=== PATIENT | male | born 1950 | race Caucasian/White ===

== ENCOUNTER 2023-10-05 09:20 | Outpatient (CLI) | payer MEDICARE ==
[~2023-10-05] VITALS: Ht 180.3 cm; Wt 93.0 kg
[2023-10-05] MEDS ORDERED: IRBE150T51 PO (10:27)
[2023-10-05] MEDS ORDERED: ROSU20TA73 PO (10:27)
[2023-10-05] MEDS ORDERED: VITAMIN D (10:27)
[2023-10-05] MEDS ORDERED: AMLO10TA PO (10:27)
[2023-10-05] MEDS ORDERED: MVI (10:28)
[2023-10-05] MEDS ORDERED: MILK THISTLE (10:28)
[2023-10-05 11:14] LABS: BILIRUBIN,URINE NEGATIVE (Neg); CLARITY,URINE CLEAR (Clear); COLOR,URINE YELLOW (Yellow); GLUCOSE, URINE NEGATIVE (Neg); KETONES,URINE NEGATIVE (Neg); LEUKOCYTE ESTERASE ,URINE NEGATIVE (Neg); NITRITES, URINE NEGATIVE (Neg); OCCULT BLOOD,URINE NEGATIVE (Neg); PH,URINE 6.5 (4.8-8.0); PROTEIN,URINE NEGATIVE (Neg); UROBILINOGEN,URINE 0.2 E.U/dL (0.2-1.0)
[2023-10-05 11:17] LABS: BASOPHILS % (AUTO) 0.4 % (0-1); MEAN CORPUSCULAR HEMOGLOBIN 31.2 PG (27.0-31.0); MONOCYTES # (AUTO) 0.5 X10'3 (0-0.9); NEUTROPHILS # (AUTO) 4.1 X10'3 (1.8-7.7)
[2023-10-05 11:18] LABS: EOSINOPHILS # (AUTO) 0.1 X10'3 (0-0.9); EOSINOPHILS % (AUTO) 2.5 % (0-6); LYMPHOCYTES # (AUTO) 1.1 X10'3 (1.1-4.8); LYMPHOCYTES % (AUTO) 19.3 % (21-51); MEAN CORPUSCULAR VOLUME 91.7 FL (78-98); MEAN PLATELET VOLUME 9.2 FL (7.4-10.4); NEUTROPHILS % (AUTO) 68.8 % (42-75); PRE OP HEMATOCRIT 46.8 % (42.0-52.0); PRE OP HEMOGLOBIN 15.9 g/dL (14.0-17.9); PRE OP PLATELET COUNT 182 X10'3 (140-440); PRE OP WHITE BLOOD COUNT 5.9 10'3 (4.8-10.8); RED BLOOD COUNT 5.11 X10'6 (4.70-6.10); RED CELL DISTRIBUTION WIDTH 12.4 % (11.5-14.5); UA COLLECTION TYPE NON-SPECIFIED
[2023-10-05 11:27] LABS: PRE OP PROTIME 10.4 SECONDS (9.0-12.0)
[2023-10-05 11:30] LABS: ALBUMIN 3.4 G/DL (3.4-5.0); ALBUMIN/GLOBULIN RATIO 0.8 (1.1-1.5); ALKALINE PHOSPHATASE 102 IU/L (46-116); BLOOD UREA NITROGEN 13 MG/DL (7-18); BUN/CREATININE RATIO 17.8 (10.0-20.0); CALCIUM 7.7 MG/DL (8.5-10.1); CHLORIDE 105 MMOL/L (99-107); CREATININE 0.73 MG/DL (0.60-1.10); PRE OP ALT 43 U/L (30-65); PRE OP ANION GAP 4 (8-16); PRE OP AST 26 U/L (10-37); PRE OP BILIRUB, TOTAL 0.7 MG/DL (0.0-1.0); PRE OP GLUCOSE 93 MG/DL (70-104); PRE OP POTASSIUM 3.7 MMOL/L (3.4-5.1); PRE OP SODIUM 142 MMOL/L (135-145); TOTAL CARBON DIOXIDE 33.1 MMOL/L (24-32); TOTAL PROTEIN 7.5 G/DL (6.4-8.2); eGFR > 90 ML/MIN
[2023-10-12] MEDS ORDERED: famotidine 20mg tablet PO ONE (05:30)
[2023-10-12] MEDS ORDERED: ringers solution, lacted 1,000 ML IV SCH (05:30)
[2023-10-12] MEDS ORDERED: cefazolin 2gm/D5W 100mL 100 ML IV ONE (05:30)
== END 2023-10-05 23:59 | disposition home or self-care (01) ==
LOC: LAB 09:20 → EDSTATUS 10-12 17:00
PROVIDERS: ATTEND Specialist
DX: Z01.818 Encounter for other preprocedural examination (principal); M70.21 Olecranon bursitis, right elbow; M25.521 Pain in right elbow; R22.31 Localized swelling, mass and lump, right upper limb
CPT/HCPCS: 36415; 71046; 80053; 81003; 85025; 85610; 85730; 86885; 86900; 86901; J0690; J7120